=== PATIENT | male | born 1950 | race Two or more races ===

== ENCOUNTER 2024-04-26 05:17 | Day surgery (SDC) | payer OTHER ==
[2024-04-23 15:42] VITALS: BMI 28.2
[2024-04-26] MEDS ORDERED: CEFAZOLIN 2 GM/D5W 2 GM/50 ML ML IVPB ONE (07:00)
[2024-04-26] MEDS ORDERED: BUPIVACAINE HCL/PF 0.5% (5MG/ML) 10 ML VIAL ONE (07:36)
[2024-04-26] MEDS ORDERED: MIDAZOLAM HCL 2 MG/2 ML SINGLE DOSE VIAL ONE (07:58)
[2024-04-26] MEDS ORDERED: HYDROmorphone HCl 2 MG/ML VIAL ONE (07:58)
[2024-04-26] MEDS ORDERED: SEVOFLURANE 250 ML BTL ONE (08:09)
[2024-04-26] MEDS ORDERED: DEXAMETHASONE SOD PHOSPHATE 4 MG/1 ML VIAL ONE (08:11)
[2024-04-26] MEDS ORDERED: LIDOCAINE HCL/PF 2% SDV 5ML VIAL ONE (08:11)
[2024-04-26] MEDS ORDERED: PROPOFOL 20 ML ONE (08:13)
[2024-04-26] MEDS ORDERED: ROCURONIUM BROMIDE 50 MG/5 ML SYRINGE ONE ×2 (08:14→09:11)
[2024-04-26] MEDS ORDERED: ceFAZolin SODIUM 1 GM VIAL ONE (08:19)
[2024-04-26] MEDS: ceFAZolin SODIUM 1 GM VIAL IVPB ONE ×2 (08:20)
[2024-04-26] MEDS ORDERED: KETOROLAC TROMETHAMINE 30 MG/1 ML VIAL ONE (08:28)
[2024-04-26] MEDS ORDERED: ACETAMINOPHEN INJECTION 100 ML ONE (08:28)
[2024-04-26] MEDS ORDERED: ONDANSETRON 4 MG/2 ML VIAL ONE ×2 (08:28→11:31)
[2024-04-26] MEDS ORDERED: SUGAMMADEX SODIUM 200 MG/2 ML VIAL ONE (08:28)
[2024-04-26] MEDS: BUPIVACAINE HCL/PF 0.5% (5 MG/ML) 30 ML VIAL IJ ONE ×4 (08:44)
[2024-04-26] MEDS ORDERED: METOPROLOL TARTRATE 5 MG/5 ML VIAL ONE (10:13)
[2024-04-26] MEDS ORDERED: oxyCODONE HCL 5 MG TABLET PO PRN ×2 (10:43)
[2024-04-26] MEDS ORDERED: LACTATED RINGERS SOLUTION 1,000 ML IV SCH (10:45)
[2024-04-26] MEDS: ONDANSETRON 4 MG/2 ML VIAL IVPUSH PRN (11:32)
[2024-04-26] MEDS: METOCLOPRAMIDE HCL INJECTION 10 MG/2 ML VIAL IVPUSH ONE (13:00)
[2024-04-26] MEDS ORDERED: METOCLOPRAMIDE HCL INJECTION 10 MG/2 ML VIAL ONE (13:30)
[2024-04-26 17:23] VITALS: BP 154/80; PULSE 86; RESP 18; TEMP 97.5
== END 2024-04-26 17:15 | disposition home or self-care (01) ==
LOC: JASU-SURG 05:17
PROVIDERS: ATTEND Surgery
PROC: 8E0W4CZ Robotic Assisted Procedure of Trunk Region, Percutaneous Endoscopic Approach (ICD-10-PCS; 2024-04-26)
PROC: 0YU64JZ Supplement Left Inguinal Region with Synthetic Substitute, Percutaneous Endoscopic Approach (ICD-10-PCS; principal; 2024-04-26 08:00)
DX: K40.90 Unilateral inguinal hernia, without obstruction or gangrene, not specified as recurrent (principal)
CPT/HCPCS: 49650; S2900; 82962; 86850; 86900; 86901; 94760; C1781; J0131